=== PATIENT | female | born 1955 | race Caucasian/White ===

== ENCOUNTER 2019-03-07 18:50 | Emergency (ER) | payer OTHER ==
--- NOTE | 2019-03-07 19:37 | ER Document Report ---
ED Medical Screen (RME) - General Chief Complaint: Lip Injury Stated Complaint: FELL Time Seen by Provider: 03/07/19 19:29 Mode of Arrival: Ambulatory Information source: Patient Notes: Patient states she was walking tripped over uneven pavement and fell hitting her left side of the face on the pavement. There was no loss of consciousness no nausea or vomiting. Patient with abrasion to the lip, left side of face, and knee. I have greeted and performed a rapid initial assessment of this patient. A comprehensive ED assessment and evaluation of the patient, analysis of test results and completion of the medical decision making process will be conducted by additional ED providers. TRAVEL OUTSIDE OF THE [place] IN LAST 30 DAYS: No - Related Data Allergies/Adverse Reactions: cephalexin [From Keflex] Allergy (Verified 03/07/19 18:52) epinephrine Allergy (Verified 03/07/19 18:52) Past Medical History - Social History Frequency of alcohol use: None Drug Abuse: None Pulmonary Medical History: Reports: Hx Asthma Neurological Medical History: Reports: Hx Migraine Renal/ Medical History: Denies: Hx Peritoneal Dialysis Past Surgical History: Reports: Hx Hysterectomy, Hx Tonsillectomy Physical Exam - Vital signs Vitals: Temp Pulse Resp BP Pulse Ox 97.7 F 86 18 147/76 H 99 03/07/19 19:01 03/07/19 19:01 03/07/19 19:01 03/07/19 19:01 03/07/19 19:01 - General Notes: Extraocular movements intact, left infraorbital tenderness Course - Vital Signs Vital signs: Temp Pulse Resp BP Pulse Ox 97.7 F 86 18 147/76 H 99 03/07/19 19:01 03/07/19 19:01 03/07/19 19:01 03/07/19 19:01 03/07/19 19:01
--- NOTE | 2019-03-07 20:49 | RADIOLOGY REPORT (SQ) ---
EXAM DESCRIPTION: CT MAXILLOFACIAL WITHOUT IV CONTRAST COMPLETED DATE/TME: 03/07/2019 19:34 CLINICAL HISTORY: 63 years, Female, fall, L periorbital injury COMPARISON: None. TECHNIQUE: Noncontrast CT of the face was performed. Coronal and sagittal reformations were created. Images stored on PACS. All CT scanners at this facility use dose modulation, iterative reconstruction, and/or weight based dosing when appropriate to reduce radiation dose to as low as reasonably achievable (ALARA). [facility]: Dose Right [facility]: CareDose [facility]: Dose Right [facility]: Teradose 4D [facility]: [place] LIMITATIONS: None. FINDINGS: Mandible is intact. Medial and lateral pterygoid plates are intact. The zygomatic arches are intact. Nasal bone is intact. The nasal septum is mildly deviated towards the left with an associated small nasal spur. Paranasal sinuses and mastoid air cells are clear. Mild opacity is noted about the left external auditory canal, indicating cerumen. Visualized portions of the hypopharynx, oropharynx, and nasopharynx appear normal. The bilateral parotid and submandibular glands show no suspicious finding. Globes and orbits show no acute abnormality. Visualized portions of the brain parenchyma reveal no suspicious findings. Limited assessment of the cervical spine reveals multilevel cervical spondylosis, designated primarily by facet hypertrophy. IMPRESSION: No acute abnormality within the face. TECHNICAL DOCUMENTATION: Quality ID # [id number]: Final reports with documentation of one or more dose reduction techniques (e.g., Automated exposure control, adjustment of the mA and/or kV according to patient size, use of iterative reconstruction technique) copyright 2011 [employer]- All Rights Reserved
[2019-03-07] MEDS ORDERED: ACETAMINOPHEN 325 MG TABLET PO ONE (21:53)
--- NOTE | 2019-03-07 21:57 | ER Document Report ---
ED Fall - General Chief Complaint: Lip Injury Stated Complaint: FELL Time Seen by Provider: 03/07/19 19:29 Mode of Arrival: Ambulatory Information source: Patient Notes: 63-year-old female presented to ED after she fell outside hitting her face on the pavement. There was no loss of consciousness. She states there was no nausea or vomiting. She states she was out in public and nobody came to help her get up off the ground. She had abrasions to her left side of her face left lip left knee right forearm and left third toe. Alert oriented respirations regular and unlabored speaking in full sentences. She was seen in triage by another provider and CT of the face was ordered. CT was negative before I saw her. TRAVEL OUTSIDE OF THE [place] IN LAST 30 DAYS: No - HPI Occurred: Just prior to arrival Where: Outdoors, Public place Context: Tripped, Fell from standing Associated symptoms: denies: Lost consciousness, Dazed/confused, Seizure, Difficulty breathing, Difficulty walking, Became dizzy/fainted, Blood in stool Location of injury/pain: Face, Upper extremity, Lower extremity Quality of pain: Achy, Burning Severity: Moderate Pain Level: 2 - Related data Allergies/Adverse Reactions: cephalexin [From Keflex] Allergy (Verified 03/07/19 18:52) epinephrine Allergy (Verified 03/07/19 18:52) Past Medical History - General Information source: Patient - Social History Smoking Status: Never Smoker Frequency of alcohol use: None Drug Abuse: None Lives with: Alone Family History: Reviewed & Not Pertinent Patient has suicidal ideation: No Patient has homicidal ideation: No - Past Medical History Cardiac Medical History: Reports: None Pulmonary Medical History: Reports: Hx Asthma EENT Medical History: Reports: None Neurological Medical History: Reports: Hx Migraine Endocrine Medical History: Reports: None Renal/ Medical History: Reports: None Malignancy Medical History: Reports: None GI Medical History: Reports: None Musculoskeletal Medical History: Reports None Skin Medical History: Reports None Psychiatric Medical History: Reports: None Traumatic Medical History: Reports: None Infectious Medical History: Reports: None Past Surgical History: Reports: Hx Hysterectomy, Hx Tonsillectomy - Immunizations Immunizations up to date: Yes Review of Systems - Review of Systems Constitutional: No symptoms reported EENT: No symptoms reported, Other - Left upper lip and left side of her face bruising to the left side of her face Cardiovascular: No symptoms reported Respiratory: No symptoms reported Gastrointestinal: No symptoms reported Genitourinary: No symptoms reported Female Genitourinary: No symptoms reported Musculoskeletal: No symptoms reported Skin: Change in color - Bruising to right arm both knees and left side of her face, Other - Abrasions to the right arm left knee left third toe left side of her face and left lip Hematologic/Lymphatic: No symptoms reported Neurological/Psychological: No symptoms reported -: Yes All other systems reviewed and negative Physical Exam - Vital signs Vitals: Temp Pulse Resp BP Pulse Ox 97.7 F 86 18 147/76 H 99 03/07/19 19:01 03/07/19 19:01 03/07/19 19:01 03/07/19 19:01 03/07/19 19:01 Interpretation: Normal - General General appearance: Appears well, Alert - HEENT Head: Normocephalic, Atraumatic Eyes: Normal Pupils: PERRL - Respiratory Respiratory status: No respiratory distress Chest status: Nontender Breath sounds: Normal Chest palpation: Normal - Cardiovascular Rhythm: Regular Heart sounds: Normal auscultation Murmur: No - Abdominal Inspection: Normal Distension: No distension Bowel sounds: Normal Tenderness: Nontender Organomegaly: No organomegaly - Back Back: Normal, Nontender - Extremities General upper extremity: Normal ROM, Normal temperature General lower extremity: Normal ROM, Normal temperature, Normal weight bearing. No: Freida's sign Forearm: Tender, Abrasion, Ecchymosis Knee: Tender, Abrasion, Ecchymosis Foot: Abrasion - Left third toe, Ecchymosis, No evidence of FB - Neurological Neuro grossly intact: Yes Cognition: Normal Orientation: AAOx4 [place] Coma Scale Eye Opening: Spontaneous [place] Coma Scale Verbal: Oriented Leonid Coma Scale Motor: Obeys Commands Leonid Coma Scale Total: 15 Speech: Normal Motor strength normal: LUE, RUE, LLE, RLE Sensory: Normal - Psychological Associated symptoms: Normal affect, Normal mood - Skin Skin Temperature: Warm Skin Moisture: Dry Skin Color: Normal, Ecchymosis - Bruising to both knees right arm left side of her face, Other - Abrasions to right forearm left knee left third toe left side of her face and left upper lip Irregularity with: Tenderness Course - Re-evaluation Re-evalutation: 03/08/19 02:03 Patient was treated with Tylenol and ice packs. She was instructed on use of supportive describes the abrasions as she stated she had already cleaned the mall. She was given antibiotic ointment to apply to all the areas that she did not want it on at this time. She was given instructions to please follow-up with her primary doctor and return to the ED immediately for any nausea or vomiting change in orientation or weakness to her extremities. Patient is was alert and oriented and stated that the pain was actually getting better before she was discharged. Patient was discharged home with her family. - Vital Signs Vital signs: Temp Pulse Resp BP Pulse Ox 97.4 F 69 16 127/80 H 98 03/07/19 22:07 03/07/19 22:07 03/07/19 22:07 03/07/19 22:07 03/07/19 22:07 - Diagnostic Test Radiology reviewed: Image reviewed, Reports reviewed Discharge - Discharge Clinical Impression: Abrasions of multiple sites, Contusion, multiple sites Fall Qualifiers: Encounter type: initial encounter Qualified Code(s): W19.XXXA - Unspecified fall, initial encounter Condition: Stable Disposition: HOME, SELF-CARE Additional Instructions: CONTUSION: Your injury has resulted in a contusion -- a crushing of the deep tissues. No injury to important structures was detected during the physician's exam. Contusions vary in the amount of pain they cause, and in the length of time required for healing. Typically, the area will become bruised, and will remain painful to touch for two or three weeks. However, most patients are back to working and playing within a few days. After the initial period of rest and cold-packs, your symptoms (together with the doctor's recommendations) will determine how rapidly you can get back to full activity. Usually this means "do what feels okay, but don't do things that hurt." If re-examination was recommended, it's important to follow up as instructed. Call the doctor or return any time if pain increases, if swelling becomes severe, if you develop numbness or weakness in an injured extremity, or if any other alarming symptoms occur. ABRASIONS: An abrasion is a scraping injury of the skin. Some scarring may result. The seriousness of an abrasion is not always obvious at first. Hidden tissue damage may be present and infection may occur despite proper care. Complete healing may take from ten days to as long as a month. The healing time depends on the depth of the abrasion, and on the amount of crushing of underlying tissues from the injury. Keep the wound and dressing clean. Do not shower or bathe the area until okayed by the doctor. If the dressing gets wet, remove it and blot the wound dry, then reapply a clean dressing. Dressings should be changed every day. Sunscreen should be used for six months after the skin is healed. If any signs of infection occur (swelling, redness, increasing tenderness, red streaks, profuse purulent drainage from the abrasion, tender lumps in the armpit or groin above the abrasion, or fever), see the doctor immediately. Ibuprofen Ibuprofen is an excellent, safe drug for pain control. In addition, it has potent antiinflammatory effects which are beneficial, especially in the treatment of injuries, arthritis, or tendonitis. It's best to take ibuprofen with food. Persons with ulcer disease or allergy to aspirin should notify their physician of this before taking ibuprofen. Take the medication exactly as prescribed. Don't take additional doses unless instructed to do so by your doctor. If you develop wheezing, shortness of breath, hives, faintness, stomach pain, vomiting, or dark black stools, return for re-evaluation at once. USE OF TYLENOL (ACETAMINOPHEN): Acetaminophen may be taken for pain relief or fever control. It's much safer than aspirin, offering a wider range of "safe" dosages. It is safe during . Some brand names are Tylenol, Panadol, Datril, Anacin 3, Tempra, and Liquiprin. Acetaminophen can be repeated every four hours. The following are maximum recommended dosages: WEIGHT Dose Drops Elixir Chewable(80mg) (LBS.) drprs=droppers tsp=teaspoon 6 40 mg 0.4 ml (1/2) 6-11 80 mg 0.8 ml (full) tsp 1 tab 12-16 120 mg 1 1/2 drprs 3/4 tsp 1 1/2 tabs 17-23 160 mg 2 drprs 1 tsp 2 tabs 24-30 240 mg 3 drprs 1 1/2 tsp 3 tabs 30-35 320 mg 2 tsp 4 tabs 36-41 360 mg 2 1/4 tsp 4 1/2 tabs 42-47 400 mg 2 1/2 tsp 5 tabs 48-53 480 mg 3 tsp 6 tabs 54-59 520 mg 3 1/4 tsp 6 1/2 tabs 60-64 560 mg 3 1/2 tsp 7 tabs 65-70 600 mg 3 3/4 tsp 7 1/2 tabs 71-76 640 mg 4 tsp 8 tabs 77-82 720 mg 4 1/2 tsp 9 tabs 83-88 800 mg 5 tsp 10 tabs >89 pounds or adults 650 mg to 900 mg Acetaminophen can be repeated every four hours. Maximum dose not to exceed 4000 mg a day. These maximum recommended dosages are slightly higher than the dosages written on the product container, but these dosages are very safe and below the toxic dosage for acetaminophen. ICE PACKS: Apply ice packs frequently against the painful area. Many different schedules are recommended, such as "20 minutes on, 20 minutes off" or "one hour ice, two hours rest." If you need to work, you may need to go longer between ice treatments. You should plan to have the area ice packed AT LEAST one fourth of the time. The ice should be applied over the wrap, tape, or splint, or over a layer of cloth -- not directly against the skin. Some ice bags have a built-in cloth and can be put directly on the skin. WARM PACKS: After approximately two days, apply gentle heat (such as a heating pad or hot water bottle) for about 20 to 30 minutes about every two hours -- at least four times daily. Warmth and elevation will help you make a more rapid recovery, and will ease the pain considerably. Do not use HOT heat, and never apply heat for longer than 30 minutes. The continuous heat can invisibly damage skin and muscles -- even when no burn is seen on the surface. Damaged muscles can make you MORE sore. FOLLOW-UP CARE: If you have been referred to a physician for follow-up care, call the physicians office for an appointment as you were instructed or within the next two days. If you experience worsening or a significant change in your symptoms, notify the physician immediately or return to the Emergency Department at any time for re-evaluation. I have given you a CD of your CT of the face. Please take this with you to your follow-up appointment with your primary care doctor when you return home. Forms: Elevated Blood Pressure
[2019-03-07 22:09] VITALS: BP 127/80
== END 2019-03-07 22:09 | disposition home or self-care (01) ==
LOC: ER 18:50
DX: S80.02XA Contusion of left knee, initial encounter (principal); S80.01XA Contusion of right knee, initial encounter; S40.021A Contusion of right upper arm, initial encounter; S00.83XA Contusion of other part of head, initial encounter; S00.511A Abrasion of lip, initial encounter; S90.415A Abrasion, left lesser toe(s), initial encounter; S50.811A Abrasion of right forearm, initial encounter; W01.10XA Fall on same level from slipping, tripping and stumbling with subsequent striking against unspecified object, initial encounter; Y92.89 Other specified places as the place of occurrence of the external cause
CPT/HCPCS: 70486; 99283